=== PATIENT | female | born 1960 ===

== ENCOUNTER 2016-12-07 05:55 | Day surgery (SDC) | payer MEDICARE, MEDICAID ==
[~2016-12-07] VITALS: Ht 157.5 cm; Wt 63.5 kg
[2016-12-07] VITALS (9 sets, daily range): BP systolic 96–130; BP diastolic 54–79
[2016-12-07] MEDS ORDERED: LEVOTHYROXINE100 MCG ORAL (06:53)
[2016-12-07] MEDS ORDERED: AMBIEN10 MG ORAL (06:53)
[2016-12-07] MEDS ORDERED: Bupivacaine 0.5% Inj 30 ml vial INJ ONE (07:06)
[2016-12-07] MEDS ORDERED: Dexamethasone 4mg/ml vial ONE (07:06)
[2016-12-07] MEDS ORDERED: Lidocaine 1% Plain 30 ml INJ ONE (07:06)
[2016-12-07 07:21] LABS: BASOPHILS % (AUTO) 1.4 % (0.0-2.0); LYMPHOCYTES % (AUTO) 34.6 % (20.0-45.0); MEAN CORPUSCULAR HEMOGLOBIN 30.2 PG (27.0-31.0); MEAN CORPUSCULAR VOLUME 92 FL (80-99); MEAN PLATELET VOLUME 6.8 FL (6.5-10.1); NEUTROPHILS % (AUTO) 57.1 % (45.0-75.0); PLATELET COUNT 211 K/UL (150-450); RED BLOOD COUNT 3.92 M/UL (4.20-5.40); RED CELL DISTRIBUTION WIDTH 12.8 % (11.6-14.8); WHITE BLOOD COUNT 3.5 K/UL (4.8-10.8)
[2016-12-07] MEDS ORDERED: NS Irrig 1000ml ONE (07:30)
[2016-12-07] MEDS ORDERED: Sterile Water Irrig 1000ml IRRIG ONE (07:30)
[2016-12-07] MEDS ORDERED: Midazolam 2mg/2ml Inj ONE (07:30)
[2016-12-07] MEDS ORDERED: Propofol 10mg/ml 20ml IV ONE (07:30)
[2016-12-07] MEDS ORDERED: LR 1000ml ONE (07:30)
[2016-12-07] MEDS ORDERED: Lidocaine 1% MPF 10mg/ml 5ml ONE (07:30)
[2016-12-07] MEDS ORDERED: fentaNYL 100 mcg/2 mL IV ONE (07:30)
[2016-12-07 07:32] LABS: INR 0.9 (0.9-1.1); PROTHROMBIN TIME 9.9 SEC (9.30-11.50)
[2016-12-07 07:35] LABS: CALCIUM 9.5 mg/dL (8.6-10.2); CARBON DIOXIDE 24 mEQ/L (20-30); CREATININE 0.7 mg/dL (0.5-0.9); GLOMERULAR FILTRATION RATE > 60 mL/min (>60); HEMOLYSIS 8
[2016-12-07 07:36] LABS: ANION GAP 14 (5-15); CHLORIDE 102 mEQ/L (98-107); POTASSIUM 3.9 mEQ/L (3.4-4.9); SODIUM 140 mEQ/L (135-145)
--- NOTE | 2016-12-07 07:36 | Pre-Procedure Note/Attestation ---
Pre-Procedure Note/Attestation Complete Prior to Procedure Planned Procedure: left Procedure Narrative: Hammertoe correction third and fourth left digits Indications for Procedure Pre-Operative Diagnosis: Hammertoe deformity third and fourth left digits Attestation I attest that I discussed the nature of the procedure; its benefits; risks and complications; and alternatives (and the risks and benefits of such alternatives ), prior to the procedure, with the patient (or the patient's legal security representative). I attest that, if there was a reasonable possibility of needing a blood transfusion, the patient (or the patient's legal security representative) was given the [facility] standardized written summary, pursuant to the [place] Blood Safety Act ([place] Health and Safety Code # 1645, as amended). I attest that I re-evaluated the patient just prior to the surgery and that there has been no change in the patient's H&P, except as documented below: DAVINA TAMAYO Dec 07, 2016 07:36
--- NOTE | 2016-12-07 08:25 | Anethesia Preoperative Eval ---
Anesthesia Pre-op PMH/ROS General Date of Evaluation: Dec 07, 2016 Time of Evaluation: 07:20 Anesthesiologist: Maral ASA Score: ASA 2 Mallampati Score Class I : Soft palate, uvula, fauces, pillars visible Class II: Soft palate, uvula, fauces visible Class III: Soft palate, base of uvula visible Class IV: Only hard plate visible Mallampati Classification: Class I Surgeon: Tabitha Surgical Procedure: Left hammer toe Anesthesia History: PONV Family History: no anesthesia problems Allergies: Coded Allergies: No Known Allergies (Verified Allergy, Unknown, 11/02/09) Medications: see eMAR Past Medical History Cardiovascular: Denies: CAD, HTN, MT, arrhythmia, other, valve dz Pulmonary: Denies: COPD, LUIS MANUEL, asthma, other Gastrointestinal/Genitourinary: Reports: GERD Neurologic/Psychiatric: Denies: CVA, TIA, dementia, depression/anxiety, other Endocrine: Reports: hypothyroidism HEENT: Denies: SENECA (L), SENECA (R), cataract (L), cataract (R), glaucoma, other Hematology/Immune: Denies: DVT, anemia, bleeding disorder, other Musculoskeletal/Integumentary: Reports: OA Anesthesia Pre-op Phys. Exam Physician Exam Last Vital Signs Date Time Temp Pulse Resp B/P Pulse Ox O2 Delivery O2 Flow Rate FiO2 12/07/16 06:46 97.8 54 18 130/79 98 Room Air Constitutional: NAD Neurologic: CN 2-12 intact Cardiovascular: RRR Respiratory: CTA Gastrointestinal: S/NT/ND Airway Exam Mallampati Score: Class I MO: full ROM: full Teeth: intact - crowns intact Dentures: no lower, no upper Anesthesia Pre-op A/P Labs Hematology Test 12/07/16 06:35 White Blood Count 3.5 K/UL (4.8-10.8) L Red Blood Count 3.92 M/UL (4.20-5.40) L Hemoglobin 11.9 G/DL (12.0-16.0) L Hematocrit 35.9 % (37.0-47.0) L Mean Corpuscular Volume 92 FL (80-99) Mean Corpuscular Hemoglobin 30.2 PG (27.0-31.0) Mean Corpuscular Hemoglobin Concent 33.0 G/DL (32.0-36.0) Red Cell Distribution Width 12.8 % (11.6-14.8) Platelet Count 211 K/UL (150-450) Mean Platelet Volume 6.8 FL (6.5-10.1) Neutrophils (%) (Auto) 57.1 % (45.0-75.0) Lymphocytes (%) (Auto) 34.6 % (20.0-45.0) Monocytes (%) (Auto) 7.0 % (1.0-10.0) Eosinophils (%) (Auto) 0.0 % (0.0-3.0) Basophils (%) (Auto) 1.4 % (0.0-2.0) Coagulation Test 12/07/16 06:35 Prothrombin Time 9.9 SEC (9.30-11.50) Prothromb Time International Ratio 0.9 (0.9-1.1) Activated Partial Thromboplast Time 27 SEC (23-33) Chemistry Test 12/07/16 06:35 Sodium Level 140 mEQ/L (135-145) Potassium Level 3.9 mEQ/L (3.4-4.9) Chloride Level 102 mEQ/L (98-107) Carbon Dioxide Level 24 mEQ/L (20-30) Anion Gap 14 (5-15) Blood Urea Nitrogen 15 mg/dL (7-23) Creatinine 0.7 mg/dL (0.5-0.9) Estimat Glomerular Filtration Rate > 60 mL/min (>60) Glucose Level 113 mg/dL (74-106) H Calcium Level 9.5 mg/dL (8.6-10.2) Studies Pre-op Studies: EKG - NSB Risk Assessment & Plan Status Change Before Surgery: No Pre-Antibiotics Drug: Ancef 2 grams IV per Surgeon request Given Within 1 Hr of Incision: Yes Time Given: 07:40 Ellyn Alicia CRNA Dec 07, 2016 08:25
--- NOTE | 2016-12-07 09:16 | Brief Operative Note ---
Immediate Post Operative Note Operative Note Pre-op Diagnosis: Hammertoe deformity third and fourth left digits Procedure: Arthroplasty third left PIPJ Fusion third left PIPJ T&C third and fourth MTPJ left Post-op Diagnosis: same as pre-op Surgeon: Tabitha Anesthesiologist: Ellyn Alicia Anesthesia: MAC Specimen: yes Complications: none Condition: stable Estimated Blood Loss: none Drains: none Implant(s) used?: Yes DAVINA TAMAYO Dec 07, 2016 09:16
--- NOTE | 2016-12-07 10:27 | Immediate Post-Op Evaluation ---
Immediate Post-Op Evalulation Immediate Post-Op Evalulation Date of Evaluation: Dec 07, 2016 Time of Evaluation: 09:18 IV Fluids: 800 ml Estimated Blood Loss: 3 ml Blood Pressure Systolic: 97 Blood Pressure Diastolic: 53 Pulse Rate: 54 Respiratory Rate: 18 O2 Sat by Pulse Oximetry: 98 Temperature (Fahrenheit): 98.2 Pain Score (1-10): 0 Nausea: No Vomiting: No Patient Status: awake Hydration Status: adequate Drug: ancef 2 gm iv Given Within 1 Hr of Incision: Yes Time Given: 07:40 Ellyn Alicia CRNA Dec 07, 2016 10:27
--- NOTE | 2016-12-07 10:28 | 48 Hour Post Anesthesia Eval ---
Post Anesthesia Evaluation Date of Evaluation: Dec 07, 2016 Time of Evaluation: 09:27 Blood Pressure Systolic: 100 0: 54 Pulse Rate: 56 Respiratory Rate: 18 Temperature (Fahrenheit): 98.1 O2 Sat by Pulse Oximetry: 99 Airway: patent Nausea: No Vomiting: No Pain Intensity: 0 Hydration Status: adequate Mental Status/LOC: patient returned to baseline Follow-up care needed: patient intructions given Ellyn Alicia CRNA Dec 07, 2016 10:28
--- NOTE | 2016-12-07 10:44 | Diagnostic Imaging Report ---
Indication: POST-OP, status post hammertoe deformity correction Technique: 3 views left foot Comparison: none Findings: Patient is status post resection of the head of the fourth proximal phalanx. Surgical hardware is seen connecting the remaining fourth proximal phalanx with the base of the fourth middle phalanx. There is evidence of osteotomies of the head of the third proximal phalanx and base of the third middle phalanx. Small amount of retained air from the surgical exposure is demonstrated within the soft tissues. There is evidence of prior fifth proximal phalangeal head osteotomy. There is evidence of prior bunionectomy. No acute fractures. No dislocations. There is a small calcaneal spur Impression: Postoperative left foot, as described. No unusual features
--- NOTE | 2016-12-07 15:38 | Cardiology Report ---
APPROVED REPORT EKG Measurement Heart [id number] Sinus bradycardia Otherwise normal ECG
--- NOTE | 2016-12-07 19:30 | Operative Note - Dictated ---
DATE OF OPERATION: 12/07/2016 SURGEON: Costa Lu D.P.M. ANESTHESIOLOGIST: Dr. Alicia ANESTHESIA: Local standby. PREOPERATIVE DIAGNOSES: 1. Hammertoe deformity, third and fourth left digits. 2. Contracture, third and fourth left metatarsophalangeal joint. PROCEDURES PERFORMED: 1. Tenotomy and capsulotomy of the third metatarsophalangeal joint, left foot. 2. Arthroplasty proximal interphalangeal joint, third left digit. 3. Tenotomy and capsulotomy, fourth left digit metatarsophalangeal joint. 4. Fusion proximal interphalangeal joint utilizing a diffuse implant. DESCRIPTION OF THE OPERATION: The patient was brought to the operating room and was placed on the operating room table in the supine position. IV sedation was administered by the anesthesiologist. Local anesthesia consisting of 0.5% Marcaine plain total of 20 mL was administered to the left foot and ankle tourniquet was applied to the lower extremity. The foot was prepped and draped in the usual sterile manner. An Esmarch bandage was utilized to exsanguinate the blood and left ankle tourniquet was inflated to 250 mmHg. Attention was directed to the third left metatarsophalangeal joint where a stab incision was performed and the extensor tendon was tenotomized at the level of the metatarsophalangeal joint. The third digit was brought into a rectus position at the level of that joint. At this point, attention was directed to the proximal interphalangeal joint where an approximately 4 cm dorsal linear skin incision was performed. The incision was deepened utilizing sharp and blunt dissection with care being taken to cauterize and ligate all bleeders. At the level of the joint, a transverse tenotomy was performed. The extensor tendons were severed and the head of the proximal phalanx was exposed. Utilizing a sagittal saw, the head of the proximal phalanx was resected in total. The remaining bone was rasped smooth. The wound was copiously flushed utilizing sterile saline. At this point, extensor tendon was reapproximated utilizing 4-0 Vicryl in a simple interrupted type stitch at the level of the proximal interphalangeal joint only. The skin was then reapproximated utilizing 4-0 nylon in a simple interrupted type stitch. Attention was then directed to the fourth left metatarsophalangeal joint. Utilizing the previous skin incision from the third metatarsophalangeal joint, a 67 blade was utilized to severe the extensor tendon at the level of the fourth metatarsophalangeal joint and the left digit was brought into a rectus position. At this point, a 4 cm dorsal linear skin incision was centered over the fourth left proximal interphalangeal joint and the incision was deepened utilizing sharp and blunt dissection with care being taken to cauterize and ligate all bleeders. At the level of the joint, a transverse tenotomy was performed. The extensor tendon was reflected proximally. The head of the proximal phalanx was exposed and the collateral ligaments were severed. At this point, the head of the proximal phalanx was resected utilizing a sagittal saw. The remaining bone was rasped smooth. A bur was then utilized to remove the cartilage from the proximal aspect of the intermediate phalanx. A broach was then utilized to create an indentation in the proximal aspect of the intermediate phalanx. At this point, 3.5 K-wire was driven into the shaft of the proximal phalanx. A 2.0 mini digit fuse was then utilized to be driven into the proximal phalanx over the K-wire. The K-wire was then removed in total and the distal aspect of the implant was impacted into the intermediate phalanx. The wound was copiously flushed utilizing sterile saline. The extensor tendon was then reapproximated utilizing 4-0 Vicryl in a simple interrupted type stitch. The skin was then reapproximated utilizing 4-0 nylon in a simple interrupted type stitch. The skin incision over the third metatarsophalangeal joint was also reapproximated utilizing 4-0 nylon in a simple interrupted type stitch. The wound was dressed utilizing an Adaptic 4 x 4 gauze and 3-inch [place]. Left ankle tourniquet was deflated and vascular supply was noted to all digits of left foot. The patient tolerated the procedure well and left the operating room to recovery room with all vital signs stable. Costa Lu D.P.M. DR: DIGNA JOB#: [id number] CC:
--- NOTE | 2016-12-07 19:30 | History and Physical Report ---
DATE OF ADMISSION: 12/07/2016 PODIATRIC HISTORY AND PHYSICAL HISTORY OF PRESENT ILLNESS: This is a 56-year-old patient who is admitted today for her painful hammertoe deformities. The patient has been suffering from bilateral hammertoes for the past several years. She underwent hammertoe surgery for the fifth toe in the past along with bilateral bunionectomies and ankle surgeries. The patient states that she had tried modifying her shoe gear and padding of the digits, but failed to a pain relief with conservative care. The patient was consulted on surgical repair of the third and fourth left digits. PAST MEDICAL HISTORY: Remarkable for hypothyroidism and fibromyalgia. MEDICATION: Synthroid. ALLERGIES: None. PODIATRIC PHYSICAL EXAMINATION: VASCULAR: Dorsalis pedis and posterior tibial arteries measuring 2/4 bilaterally. Capillary filling time is less than 3 seconds to all digits bilaterally. Varicosities are absent in bilateral lower extremities. Homans sign is negative. The skin is warm to the touch. NEUROLOGICAL: The reflexes, Achilles, and patellar are measuring 2/4, equal and symmetrical bilaterally. The sensation, proprioception, and vibrations are all intact in bilateral lower extremities. Babinski is negative. Clonus is absent. MUSCULOSKELETAL: Reveals nonreducible hammertoe deformities of digits 2 through 5 bilaterally. The fifth digit is under-riding. The fourth digit on the left side, there is noted palpable pain over the lateral aspect of the ankles bilaterally. Range of motion of the subtalar joint and midtarsal joints is full and without crepitation. DERMATOLOGICAL: Reveals scars from prior surgeries. All nails are present and healthy bilaterally. ASSESSMENT: Hammertoe deformity. PLAN: The patient is admitted today for correction of hammertoes 3 and 4 on the left side. Postoperative instructions were given to the patient. Postoperative medications were dispensed to the patient. The patient elected to proceed with surgery. Costa Lu D.P.M. DR: YENY JOB#: [id number] CC:
--- NOTE | 2016-12-08 06:00 | Pre-op HX & Phy Repo 2 SIG ---
DATE OF ADMISSION: 12/07/2016 NOTE: POOR AUDIO QUALITY REASON FOR EVALUATION: I was asked by Dr. Costa Lu to see this 56-year-old female, who is going for elective surgery on the left foot. HISTORY OF PRESENT ILLNESS: The patient is a 56-year-old female, seen at [facility] in the presurgical orthopedic department. The patient presented with hammertoe deformity left third and fourth toes. The patient was examined. Chart was reviewed. Please see silver brazer History and Physical by Dr. Costa Lu. PAST MEDICAL HISTORY AND REVIEW OF SYSTEMS: Remarkable for hypothyroidism, thyroid gland was removed about 20 years ago for underlying tumor. History of heartburn, GERD, and questionable colitis. The patient denies history of heart attack, chest pain, palpitation, respiratory problem, or asthma. No history of hypertension or stroke. Denies history of ulcer disease of stomach or hepatitis. Denies history of renal insufficiency or anemia. degenerative joint disease. PAST SURGICAL HISTORY: Remarkable for thyroidectomy, left foot surgery, retinal detachment about 10 years ago, and cataract surgery in the left eye. The patient also had a surgery of bilateral breast reduction. ALLERGIES: Unknown sensitivity to medications. The patient . CURRENT MEDICATIONS: Include levothyroxine, multivitamin, vitamin B12, vitamin B6, and calcium supplement. She also was previously taking zolpidem for insomnia and also takes . FAMILY HISTORY: Mother from complication of hypertension and diabetes. Father, unknown. HABITS: The patient denies history of smoke or alcohol . PHYSICAL EXAMINATION: GENERAL: Alert, well-developed, well-nourished female in the 50s. VITAL SIGNS: Blood pressure 130/77, temperature 97.8 degrees, pulse 54 and regular, and O2 saturation 98% on room air. The patient's BMI is 25 kg/m2. SKIN: Warm and clear. No scar on the left foot. No rashes or . LYMPHATICS: Lymph nodes not enlarged. HEENT: Head, normocephalic and atraumatic. Ears, clear. No discharge. Eyes, clear post cataract surgery. No conjunctivitis or jaundice. Mouth, clear and moist. No dentures implants. NECK: Scar well healed. No palpable mass. Thyroid gland not enlarged. Trachea is in the midline. HEART: Sinus bradycardia, 62 per minute. No murmur or ectopy. No S3 or S4. EXTREMITIES: Full description per Dr. Costa Lu. Calf nontender. No edema. Peripheral pulses are equal. NEUROLOGIC: No nystagmus. No tremor. No asymmetry. LABORATORY AND DIAGNOSTIC DATA: Electrocardiogram, sinus bradycardia, 62 per minute. Otherwise, normal CT and lab work. Apparently, the patient's last meal intake was last night before midnight. IMPRESSION: 1. Hammertoe deformity, left foot. 2. Hypothyroidism. 3. Gastroesophageal reflux disease. 4. Degenerative joint disease. 5. Sinus bradycardia. PLAN: Hammertoe correction, third and fourth toes on the left foot, by Dr. Costa Lu. CONCLUSION: The patient's vital signs are stable. The patient's EKG shows sinus bradycardia. Lab work is pending. The patient did not eat or drink from last night. The patient's condition optimized for surgery. Thank you very much, Dr. Lu, for the privilege to participate in presurgical care of this interesting patient. Farhat Grossman M.D. DR: Clair JOB#: [id number] CC:
== END 2016-12-07 10:35 | disposition home or self-care (01) ==
LOC: SUR 05:55
DX: M20.42 Other hammer toe(s) (acquired), left foot (principal); M24.575 Contracture, left foot; E89.0 Postprocedural hypothyroidism; M79.7 Fibromyalgia; K21.9 Gastro-esophageal reflux disease without esophagitis; M19.90 Unspecified osteoarthritis, unspecified site; R00.1 Bradycardia, unspecified
CPT/HCPCS: 28285; 36415; 73630; 80048; 85025; 85610; 85730; 93005; J0690; J1100; J2250; J2405; J2704; J3010; J3490; J7120; 94003; 94150

== ENCOUNTER 2017-02-08 05:38 | Day surgery (SDC) | payer MEDICARE, MEDICAID ==
[2017-02-08] VITALS (10 sets, daily range): BP systolic 100–120; BP diastolic 59–77
[~2017-02-08] VITALS: Ht 157.5 cm; Wt 63.5 kg
[~2017-02-08 05:38] MED LIST: AMBIEN10 MG ORAL; LEVOTHYROXINE100 MCG ORAL
[2017-02-08 06:49] LABS: INR 0.9 (0.9-1.1); PROTHROMBIN TIME 9.8 SEC (9.30-11.50)
[2017-02-08 06:54] LABS: BASOPHILS % (AUTO) 1.7 % (0.0-2.0); EOSINOPHILS % (AUTO) 0.1 % (0.0-3.0); LYMPHOCYTES % (AUTO) 41.1 % (20.0-45.0); MEAN CORPUSCULAR HGB CONC 35.4 G/DL (32.0-36.0); MEAN CORPUSCULAR VOLUME 90 FL (80-99); MONOCYTES % (AUTO) 7.9 % (1.0-10.0); NEUTROPHILS % (AUTO) 49.3 % (45.0-75.0); PLATELET COUNT 212 K/UL (150-450); RED BLOOD COUNT 4.64 M/UL (4.20-5.40); RED CELL DISTRIBUTION WIDTH 12.3 % (11.6-14.8); WHITE BLOOD COUNT 3.8 K/UL (4.8-10.8)
[2017-02-08] MEDS ORDERED: Betadine 10% Oint 15gm TOPIC ONE (07:07)
[2017-02-08] MEDS ORDERED: Bacitracin Oint 15gm Tube TOPIC ONE (07:07)
[2017-02-08 07:08] LABS: ANION GAP 12 mmol/L (5-15); CALCIUM 9.6 MG/DL (8.5-10.1); CARBON DIOXIDE 24 MMOL/L (21-32); CHLORIDE 107 MMOL/L (98-107); CREATININE 0.6 MG/DL (0.55-1.30); GLOMERULAR FILTRATION RATE > 60 mL/min (>60); POTASSIUM 3.9 MMOL/L (3.5-5.1); SODIUM 143 MMOL/L (136-145)
[2017-02-08] MEDS ORDERED: Dexamethasone 4mg/ml vial ONE (07:08)
[2017-02-08] MEDS ORDERED: Bupivacaine 0.5% Inj 30 ml vial INJ ONE (07:08)
[2017-02-08] MEDS ORDERED: Lidocaine 1% Plain 30 ml INJ ONE (07:08)
[2017-02-08] MEDS ORDERED: NS Irrig 1000ml ONE (07:30)
[2017-02-08] MEDS ORDERED: Sterile Water Irrig 1000ml IRRIG ONE (07:30)
[2017-02-08] MEDS ORDERED: Midazolam 2mg/2ml Inj ONE (07:30)
[2017-02-08] MEDS ORDERED: Ketorolac 30mg Inj ONE (07:30)
[2017-02-08] MEDS ORDERED: LR 1000ml ONE (07:30)
[2017-02-08] MEDS ORDERED: fentaNYL 100 mcg/2 mL IV ONE (07:30)
[2017-02-08] MEDS ORDERED: Propofol 200mg/20ml IV ONE (07:30)
--- NOTE | 2017-02-08 07:35 | Pre-Procedure Note/Attestation ---
Pre-Procedure Note/Attestation Complete Prior to Procedure Planned Procedure: bilateral Procedure Narrative: Hammertoe correction third and fourth digits right foot Removal of implant fourth left digit Indications for Procedure Pre-Operative Diagnosis: Hammertoe deformity third and fourth right digits Disengaged hammertoe implant fourth left digit Attestation I attest that I discussed the nature of the procedure; its benefits; risks and complications; and alternatives (and the risks and benefits of such alternatives ), prior to the procedure, with the patient (or the patient's legal b2b outside sales representative). I attest that, if there was a reasonable possibility of needing a blood transfusion, the patient (or the patient's legal b2b outside sales representative) was given the [place] [facility] Services standardized written summary, pursuant to the [place] Blood Safety Act ([place] Health and Safety Code # 1645, as amended). I attest that I re-evaluated the patient just prior to the surgery and that there has been no change in the patient's H&P, except as documented below: DAVINA TAMAYO Feb 08, 2017 07:35
--- NOTE | 2017-02-08 08:01 | Anethesia Preoperative Eval ---
Anesthesia Pre-op PMH/ROS General Date of Evaluation: Feb 08, 2017 Time of Evaluation: 07:15 Anesthesiologist: Fabian ASA Score: ASA 2 Mallampati Score Class I : Soft palate, uvula, fauces, pillars visible Class II: Soft palate, uvula, fauces visible Class III: Soft palate, base of uvula visible Class IV: Only hard plate visible Mallampati Classification: Class I Surgeon: Tabitha Diagnosis: Hammertoe Surgical Procedure: Hammertoe correction, removal of hardware Anesthesia History: PONV Family History: no anesthesia problems Allergies: Coded Allergies: No Known Allergies (Verified Allergy, Unknown, 11/02/09) Medications: see eMAR Past Medical History Neurologic/Psychiatric: Reports: depression/anxiety Endocrine: Reports: hypothyroidism Other: other - fibromylagia, scoliosis Anesthesia Pre-op Phys. Exam Physician Exam Last Vital Signs Date Time Temp Pulse Resp B/P (MAP) Pulse Ox O2 Delivery O2 Flow Rate FiO2 02/08/17 06:09 97.1 52 18 118/77 97 Room Air Constitutional: NAD Cardiovascular: RRR Respiratory: CTA Airway Exam Mallampati Score: Class I ROM: full Anesthesia Pre-op A/P Labs Hematology Test 02/08/17 06:00 White Blood Count 3.8 K/UL (4.8-10.8) L Red Blood Count 4.64 M/UL (4.20-5.40) Hemoglobin 14.8 G/DL (12.0-16.0) Hematocrit 42.0 % (37.0-47.0) Mean Corpuscular Volume 90 FL (80-99) Mean Corpuscular Hemoglobin 32.0 PG (27.0-31.0) H Mean Corpuscular Hemoglobin Concent 35.4 G/DL (32.0-36.0) Red Cell Distribution Width 12.3 % (11.6-14.8) Platelet Count 212 K/UL (150-450) Mean Platelet Volume 8.0 FL (6.5-10.1) Neutrophils (%) (Auto) 49.3 % (45.0-75.0) Lymphocytes (%) (Auto) 41.1 % (20.0-45.0) Monocytes (%) (Auto) 7.9 % (1.0-10.0) Eosinophils (%) (Auto) 0.1 % (0.0-3.0) Basophils (%) (Auto) 1.7 % (0.0-2.0) Coagulation Test 02/08/17 06:00 Prothrombin Time 9.8 SEC (9.30-11.50) Prothromb Time International Ratio 0.9 (0.9-1.1) Activated Partial Thromboplast Time 27 SEC (23-33) Chemistry Test 02/08/17 06:00 Sodium Level 143 MMOL/L (136-145) Potassium Level 3.9 MMOL/L (3.5-5.1) Chloride Level 107 MMOL/L (98-107) Carbon Dioxide Level 24 MMOL/L (21-32) Anion Gap 12 mmol/L (5-15) Blood Urea Nitrogen 12 mg/dL (7-18) Creatinine 0.6 MG/DL (0.55-1.30) Estimat Glomerular Filtration Rate > 60 mL/min (>60) Glucose Level 102 MG/DL (74-106) Calcium Level 9.6 MG/DL (8.5-10.1) Risk Assessment & Plan Assessment: ASA 2 Plan: MAC Pre-Antibiotics Drug: CEFAZOLIN Given Within 1 Hr of Incision: Yes Time Given: 07:42 Dai Peralta M.D. Feb 08, 2017 08:00
[2017-02-08] MEDS ORDERED: Hydromorphone 0.5mg/0.5ml inj IVP PRN (08:15)
[2017-02-08] MEDS ORDERED: oxyCODONE HCL/Acetaminophen 5/325mg ORAL PRN (08:15)
[2017-02-08] MEDS ORDERED: Atropine Inj 1mg/10ml Syr IV PRN (08:15)
[2017-02-08] MEDS ORDERED: fentaNYL 100 mcg/2 mL IV PRN (08:15)
--- NOTE | 2017-02-08 08:46 | Brief Operative Note ---
Immediate Post Operative Note Operative Note Pre-op Diagnosis: Hammertoe deformity third and fourth right digits Disengaged hammertoe implant fourth left digit Procedure: Arthroplasty third and fourth right PIPJ Removal of Hammertoe implant fourth left digit Post-op Diagnosis: same as pre-op Surgeon: Tabitha Anesthesiologist: Fabian Anesthesia: MAC Specimen: yes Complications: none Condition: stable Fluids: 100 Estimated Blood Loss: none Drains: none Tourniquet time: 40 - min Implant(s) used?: No DAVINA TAMAYO Feb 08, 2017 08:46
--- NOTE | 2017-02-08 09:41 | Immediate Post-Op Evaluation ---
Immediate Post-Op Evalulation Immediate Post-Op Evalulation Procedure: correction of hammertoe, removal of hardware both feet Date of Evaluation: Feb 08, 2017 Time of Evaluation: 08:43 IV Fluids: 500 LR Blood Products: NONE Estimated Blood Loss: MIN Blood Pressure Systolic: 112 Blood Pressure Diastolic: 63 Pulse Rate: 58 Respiratory Rate: 18 O2 Sat by Pulse Oximetry: 99 Temperature (Fahrenheit): 97.4 Pain Score (1-10): 0 Nausea: No Vomiting: No Complications NONE Patient Status: awake Hydration Status: adequate Drug: CEFAZOLIN Given Within 1 Hr of Incision: Yes Time Given: 07:42 Dai Peralta M.D. Feb 08, 2017 09:41
--- NOTE | 2017-02-08 09:43 | 48 Hour Post Anesthesia Eval ---
Post Anesthesia Evaluation Procedure: correction of hammertoe, removal of hardware both feet Date of Evaluation: Feb 08, 2017 Time of Evaluation: 09:41 Blood Pressure Systolic: 121 0: 62 Pulse Rate: 62 Respiratory Rate: 18 Temperature (Fahrenheit): 97.4 O2 Sat by Pulse Oximetry: 99 Airway: patent Nausea: No Vomiting: No Pain Intensity: 0 Hydration Status: adequate Mental Status/LOC: patient returned to baseline Post-Anesthesia Complications: NONE Dai Peralta M.D. Feb 08, 2017 09:43
--- NOTE | 2017-02-08 14:29 | Diagnostic Imaging Report ---
Indication: POST-OP Technique: 3 views right foot Comparison: none Findings: Patient is status post osteotomy of the first metacarpal, with placement of a screw and evidence of prior bunionectomy. This may be old, as the osteotomy appears healed. Patient is status post osteotomies of the third, fourth, and fifth proximal phalangeal heads and necks. No acute fractures. No dislocations. Joint spaces are preserved Impression: Postsurgical changes as described. No unusual features
--- NOTE | 2017-02-08 17:30 | History and Physical Report ---
DATE OF ADMISSION: 02/08/2017 HISTORY OF PRESENT ILLNESS: This is a 56-year-old, female, who was admitted today for outpatient surgery of her bilateral foot. The patient has been under my care for the past several months and underwent a left foot hammertoe correction for approximately two months ago. It was discovered during the postoperative care that implant was used to fuse the 4th left digit had disengaged from the bone distally and it was irritating the patient and causing a lot of pain. The patient also complained of pain from hammertoes on the right foot. She indicated the third and fourth toes on the right foot are painful in shoe gear and shoe gear modification and padding failed to alleviate the pain on the right foot. The patient elected to undergo bilateral foot surgery to correct the hammertoes on the right and remove the implant on the left. PAST MEDICAL HISTORY: Remarkable for hypothyroidism and fibromyalgia. The patient underwent bilateral foot surgeries in the past by the checkerer hand as well. MEDICATION: Synthroid. ALLERGIES: None. PODIATRIC PHYSICAL EXAMINATION: VASCULAR: Dorsalis pedis and posterior tibial arteries are measuring 2/4 bilaterally. Capillary filling time is less than 3 seconds to all digits bilaterally. Varicosities are absent in bilateral lower extremities. Homans sign is negative. Skin is warm to touch. NEUROLOGICAL: Reflexes, Achilles, and patellar measuring 2/4 equal and symmetrical bilaterally. Sensation, proprioception, vibration, and sensation are all intact in bilateral lower extremities. Babinski is negative. Clonus is absent. MUSCULOSKELETAL: Nonreducible hammertoe deformities of digits 2 through 5 on the right. The fifth digit is under riding the fourth digit on the left. There is pain to palpation over the third and fourth digits on the right and fourth digit on the left. Range of motion of the ankle subtalar joint and midtarsal joint is full and without crepitation bilaterally. DERMATOLOGICAL: Reveals scars from prior surgeries. All nails are present and healthy bilaterally. The fourth left digit is slightly erythematous and moderately edematous from prior hammertoe correction. ASSESSMENT: 1. Hammertoe deformities third and fourth right digits. 2. Painful failed implant, fourth left digit. PLAN: The patient is admitted today for correction of hammertoes 3 and 4 on the right and removal of the failed implant on the left. Postoperative instructions were given to the patient. Postoperative medications were dispensed to the patient and the patient elected to proceed with surgery. Costa Lu D.P.M. DR: Isidro JOB#: [id number] CC:
--- NOTE | 2017-02-08 19:00 | Operative Note - Dictated ---
DATE OF OPERATION: 02/08/2017 SURGEON: Costa Lu D.P.M. ANESTHESIOLOGIST: Dai Peralta M.D. ANESTHESIA: Local standby. PREOPERATIVE DIAGNOSES: 1. Hammertoe deformity, third right digit. 2. Hammertoe deformity, fourth right digit. 3. Failed hammertoe implant, fourth left digit. POSTOPERATIVE DIAGNOSES: 1. Hammertoe deformity, third right digit. 2. Hammertoe deformity, fourth right digit. 3. Failed hammertoe implant, fourth left digit. PROCEDURES PERFORMED: 1. Arthroplasty, third right proximal interphalangeal joint. 2. Arthroplasty, fourth right proximal interphalangeal joint. 3. Removal of implant, fourth left digit. DESCRIPTION OF THE OPERATION: The patient was brought to the operating room and was placed on the operating room table in the supine position. IV sedation was administered by the anesthesiologist. Local anesthesia consisting of 0.5% Marcaine plain, a total of 20 mL was administered to the third and fourth digits on the right and fourth digit on the left. An ankle tourniquet was applied to bilateral lower extremity. The feet were prepped and draped in the usual sterile manner. An Esmarch bandage was then utilized to exsanguinate the blood from the right foot and the right ankle tourniquet was inflated to 250 mmHg. Attention was directed to the third right digit where an approximately 4-cm dorsal linear skin incision was centered over the proximal interphalangeal joint. The incision was deepened utilizing sharp and blunt dissection with care being taken to cauterize and ligate all bleeders. At the level of the joint, a transverse tenotomy was performed. The extensor tendon was reflected proximally and the head of the proximal phalanx was exposed. The collateral ligaments were severed. At this point, utilizing a sagittal saw, the head of the proximal phalanx was resected in toto. The remaining bone was rasped smooth. The wound was copiously flushed utilizing sterile saline. The extensor tendon was then reapproximated utilizing 4-0 Vicryl in simple interrupted-type stitch. The skin was then reapproximated utilizing 4-0 nylon in simple interrupted-type stitch. Attention was then directed to the fourth right digit. The exact identical procedures were performed to the fourth digit as was carried on the third right digit. The right foot was then dressed utilizing an Adaptic, 4 x 4 gauze, and 3-inch Madison. The right ankle tourniquet was deflated and vascular supply was noted to all digits of right foot. Attention was then directed to the left foot. An Esmarch bandage was utilized to exsanguinate the blood and the left ankle tourniquet was inflated to 250 mmHg. Attention was directed to the fourth left digit. An incision encompassing an old scar was carried over the proximal interphalangeal joint area of the left fourth digit. The scar was excised in toto. At this point, utilizing sharp and blunt dissection, the incision was deepened down to the level of the proximal interphalangeal joint. At the level of the joint, the thick extensor tendon was transected and reflected proximally. At this point, dissection was carried down to the level of the implant, which was disengaged from the bone distally utilizing a straight Karolina. The implant was unscrewed from the proximal phalanx shaft and was removed in toto. The wound was copiously flushed utilizing sterile saline. At this point, the extensor tendon was reapproximated utilizing 4-0 Vicryl in simple interrupted-type stitch. The skin was then reapproximated utilizing 4-0 nylon in simple interrupted-type stitch. The wound was then dressed utilizing Adaptic, 4 x 4 gauze, and 3-inch Madison. Left ankle tourniquet was deflated and vascular supply was noted to all digits of left foot. The patient tolerated the procedure well and left the operating room to recovery room with all vital signs stable. Costa Lu D.P.M. DR: DIGNA JOB#: [id number] CC:
--- NOTE | 2017-02-13 10:15 | Pre-op HX & Phy Repo 2 SIG ---
DATE OF ADMISSION: 02/08/2017 NOTE: POOR AUDIO QUALITY PRESURGICAL INTERNAL MEDICINE HISTORY AND PHYSICAL REASON FOR EVALUATION: I was asked by Dr. Costa Lu to see this 56-year-old female, who is going for elective surgery on the hammer toe deformity, right foot. The patient was examined. Chart was reviewed. Please see History and Physical by Podiatry, Dr. Costa Lu. This is second visit to [facility]. The patient had left foot surgery in October 2016. PAST MEDICAL HISTORY AND REVIEW OF SYSTEMS: Remarkable for hypothyroidism, degenerative joint disease, spinal degeneration, and osteoporosis. Denies history of chest pain, palpitation, or heart attack. Denied respiratory problem. No asthma or bronchitis. Denies history of diabetes . No anemia. No stroke. Denies any paralysis for Parkinson disease. PAST SURGICAL HISTORY: Cataract, left eye and left foot surgery. MEDICATIONS: Current medications include levothyroxine, vitamin D, vitamin B12, multivitamins, occasional , and occasional pain medication. HABITS: Denies tobacco, alcohol use, or street drug use. FAMILY HISTORY: Mother from complication of diabetes mellitus and father unknown. PHYSICAL EXAMINATION: GENERAL: Alert, well-developed, well-nourished female in her 50s. VITAL SIGNS: Blood pressure 118/77, temperature 97.1 degrees, pulse 62 and regular, and O2 saturation 97% on room air. SKIN: No ulcer. No rashes or diaphoresis. Scar on the left foot. LYMPH NODES: Not enlarged. HEENT: Head: Normocephalic and atraumatic. Ears, clear. Eyes, PERRLA. Extraocular muscles intact. No jaundice or conjunctivitis. Has a on the left eye. Mouth, clear and moist. No dentures. No discharge. NECK: No jugular venous distention. Carotid artery +2. Trachea midline. Supple. LUNGS: Clear to auscultation and percussion. CHEST: No deformity, asymmetry, or mass. HEART: Sinus bradycardia 53 per minute. No ectopy. No murmur. ABDOMEN: Soft, benign. Liver and spleen not enlarged. No rebound. EXTREMITIES: No peripheral edema. Hammer toe deformity, right foot. Full description per Dr. Costa Lu. No calf tenderness or varicose veins. Peripheral pulses are strong bilaterally, both . GENITOURINARY: Denies dysuria. No CVA tenderness. NEUROLOGIC: No tremor. No nystagmus. No asymmetry. LABORATORY AND DIAGNOSTIC DATA: Electrocardiogram, sinus bradycardia, 51 per minute, otherwise, normal ECG. The patient did not eat or drink from 6 p.m. yesterday. Laboratory work pending. IMPRESSION: 1. Hammertoe deformity, right foot. 2. Hypothyroidism. 3. Osteoarthritis and osteoporosis. 4. Depression. PLAN: Hammertoe correction, third and fourth toes, right foot. Removal fourth toe on the right foot by Dr. Costa Lu. CONCLUSION: The patient has medical problems with hypothyroidism and osteoporosis. The patient's vital signs stable. The patient did not eat or drink from last night, n.p.o. The patient's EKG, bradycardia, in normal limits. The patient's condition optimized for surgery. Thank you very much, Dr. Lu, for privilege to participate in surgical care of this interesting patient. Farhat Grossman M.D. DR: Porfirio JOB#: [id number] CC:
== END 2017-02-08 10:40 | disposition home or self-care (01) ==
LOC: SUR 05:38
DX: M20.41 Other hammer toe(s) (acquired), right foot (principal); T84.098A Other mechanical complication of other internal joint prosthesis, initial encounter; Y92.009 Unspecified place in unspecified non-institutional (private) residence as the place of occurrence of the external cause; Y83.1 Surgical operation with implant of artificial internal device as the cause of abnormal reaction of the patient, or of later complication, without mention of misadventure at the time of the procedure; E03.9 Hypothyroidism, unspecified; M79.7 Fibromyalgia; F32.9 Major depressive disorder, single episode, unspecified; F41.9 Anxiety disorder, unspecified; M41.9 Scoliosis, unspecified
CPT/HCPCS: 20670; 28285; 36415; 73630; 80048; 85025; 85610; 85730; J0690; J1100; J1885; J2250; J2405; J2704; J3010; J3490; J7120; 94003; 94150